=== PATIENT | female | born 1975 | race Two or more races ===

== ENCOUNTER 2024-10-19 07:55 | Inpatient (IN) | payer OTHER ==
[~2024-10-19] VITALS: Ht 160 cm; Wt 94.1 kg
[2024-10-19 08:24] LABS: PLATELET COUNT (AUTO) 282 K/uL (179-408); RED BLOOD CELL COUNT(AUTO) 3.04 MIL/uL (3.63-4.92); RED CELL DISTRIBUTION WIDTH 13.5 % (12.3-17.7); WHITE BLOOD COUNT (AUTO) 8.7 K/uL (3.8-11.8)
[2024-10-19] MEDS ORDERED: HYDROMORPHONE 1 MG/1 ML DISP.SYRIN ONE ×2 (08:29→11:53)
[2024-10-19] MEDS ORDERED: ONDANSETRON 4 MG/2 ML VIAL ONE (08:29)
[2024-10-19] MEDS: ONDANSETRON 4 MG/2 ML VIAL IV ONE (08:37)
[2024-10-19] MEDS: HYDROMORPHONE 1 MG/1 ML DISP.SYRIN IV ONE ×2 (08:37→12:00)
[2024-10-19 08:40] LABS: ASPARTATE AMINOTRANSFERASE 5 U/L (15-37); CREATININE 6.1 mg/dL (0.6-1.3); SODIUM SERUM 134 mmol/L (136-145); TOTAL PROTEIN, SERUM 7.8 g/dL (6.4-8.2); UREA NITROGEN, BLOOD 76 mg/dL (7-18)
[2024-10-19 09:20] LABS: IRON, SERUM 30 ug/dL (50-175)
[2024-10-19] MEDS ORDERED: FERR-56 PO (10:02)
[2024-10-19] MEDS ORDERED: ROSU10TA2 PO (10:02)
[2024-10-19] MEDS ORDERED: CARV3.12 PO (10:02)
[2024-10-19] MEDS ORDERED: BUME1TAB8 PO (10:02)
[2024-10-19] MEDS ORDERED: GABA600T PO (10:02)
[2024-10-19] MEDS ORDERED: INSULIN SQ (10:02)
[2024-10-19 10:52] LABS: *BILIRUBIN,URIN NEGATIVE (NEGATIVE); *BLOOD, URINE 3+ (NEGATIVE); *CLARITY,URINE CLEAR (CLEAR); *COLOR,URINE YELLOW (YELLOW); *KETONES,URINE NEGATIVE (NEGATIVE); *UROBILINOGEN,URINE 0.2 E.U./dl (NORMAL); LEUKOCYTE ESTERASE ,URINE NEGATIVE (NEGATIVE); NITRITE, URINE NEGATIVE (NEGATIVE)
[2024-10-19] MEDS ORDERED: CLONIDINE HCL 0.1 MG TABLET ONE (11:04)
[2024-10-19] MEDS: CLONIDINE HCL 0.1 MG TABLET PO ONE (11:08)
[2024-10-19 11:28] LABS: *PROTEIN,URINE 3+ (NEGATIVE); UGLUCOSE 2+ (NEGATIVE)
[2024-10-19 11:36] LABS: SQUAMOUS EPITHELIAL CELL,UR FEW /HPF (NONE SEEN); YEAST,URINE BUDDING YEAST /HPF (NONE SEEN)
[2024-10-19] MEDS ORDERED: CYANOCOBALAMIN 1000 MCG/ML VIAL ONE (11:52)
[2024-10-19] MEDS: CYANOCOBALAMIN 1000 MCG/ML VIAL IM ONE (12:00)
[2024-10-19] MEDS ORDERED: DEXTROSE 50% 50 ML DISP.SYRIN IV PRN (13:00)
[2024-10-19 13:36] LABS: *URINE HCG, QUAL NEGATIVE (NEGATIVE)
[2024-10-19] MEDS: ONDANSETRON 4 MG/2 ML VIAL IV PRN (14:29)
[2024-10-19 16:09] VITALS: BP 137/71; TEMP 97.7; O2SAT 99
[2024-10-19] MEDS: BLOOD SUGAR DIAGNOSTIC 1 EACH STRIP VI SCH (16:36)
[2024-10-19] MEDS: INSULIN REGULAR, HUMAN 1000 UNIT/10 ML VIAL SQ PRN (16:38)
[2024-10-19 19:00] VITALS: BP 141/74; TEMP 97.7; O2SAT 98
[2024-10-19] MEDS: HYDROCODONE/APAP 5-325MG TABLET PO PRN (19:23)
[2024-10-19] MEDS ORDERED: BUMETANIDE 1 MG TABLET PO SCH (20:00)
[2024-10-19] MEDS: INSULIN REGULAR, HUMAN 300 UNITS/3 ML VIAL SQ PRN (20:43)
[2024-10-19] MEDS: CARVEDILOL 3.125 MG TABLET PO SCH (20:48)
[2024-10-19] MEDS: BUMETANIDE 1 MG TABLET PO SCH (20:48)
[2024-10-20 06:00] VITALS: BP 113/58; TEMP 98.3; O2SAT 95
[2024-10-20] MEDS: PANTOPRAZOLE SODIUM 40 MG TABLET.DR PO SCH (06:04)
[2024-10-20 07:01] LABS: PLATELET COUNT (AUTO) 266 K/uL (179-408); RED BLOOD CELL COUNT(AUTO) 2.67 MIL/uL (3.63-4.92); RED CELL DISTRIBUTION WIDTH 13.5 % (12.3-17.7); WHITE BLOOD COUNT (AUTO) 7.8 K/uL (3.8-11.8)
[2024-10-20 07:56] LABS: CREATININE 6.8 mg/dL (0.6-1.3); SODIUM SERUM 136 mmol/L (136-145); TOTAL PROTEIN, SERUM 6.5 g/dL (6.4-8.2)
[2024-10-20 08:39] LABS: ASPARTATE AMINOTRANSFERASE < 5 U/L (15-37); UREA NITROGEN, BLOOD 83 mg/dL (7-18)
[2024-10-20 08:43] LABS: ERYTHROCYTE SEDIMENTATION RATE 100 MM/HR (0-20)
[2024-10-20 08:50] LABS: CREATINE KINASE, TOTAL 93 U/L (26-192)
[2024-10-20] MEDS ORDERED: BUMETANIDE 1 MG TABLET PO SCH (09:00)
[2024-10-20] MEDS ORDERED: INSU100V7 SQ (10:26)
[2024-10-20] MEDS ORDERED: CHOL500062 PO (10:27)
[2024-10-20] MEDS ORDERED: METO5TAB7 PO (10:28)
[2024-10-20] MEDS: SODIUM ZIRCONIUM CYCLOSILICATE 10 GM POWD.PACK PO ONE ×2 (13:08→21:05)
[2024-10-20] MEDS: SOD FERRIC GLUC COMPLX/SUCROSE 125 MG in IV NORMAL SALINE 100 ML IV SCH (15:44)
[2024-10-20 16:31] LABS: CREATININE 6.8 mg/dL (0.6-1.3); SODIUM SERUM 138.0 mmol/L (136-145); UREA NITROGEN, BLOOD 85.0 mg/dL (7-18)
[2024-10-20 17:00] VITALS: BP 159/85; TEMP 98.3; O2SAT 99
[2024-10-20] MEDS: SEVELAMER CARBONATE 800 MG TABLET PO SCH (17:28)
[2024-10-20 20:00] VITALS: BP 150/78; TEMP 98.3; O2SAT 96
[2024-10-20] MEDS: ATORVASTATIN 20 MG TABLET PO SCH (21:05)
[2024-10-21 06:00] VITALS: BP 138/76; TEMP 98.2; O2SAT 97
[2024-10-21 07:47] LABS: PLATELET COUNT (AUTO) 274 K/uL (179-408); RED BLOOD CELL COUNT(AUTO) 2.72 MIL/uL (3.63-4.92); RED CELL DISTRIBUTION WIDTH 13.6 % (12.3-17.7); WHITE BLOOD COUNT (AUTO) 7.1 K/uL (3.8-11.8)
[2024-10-21 07:57] VITALS: BP 168/86; TEMP 97.7; O2SAT 96
[2024-10-21 08:14] LABS: CREATININE 6.7 mg/dL (0.6-1.3); SODIUM SERUM 138 mmol/L (136-145); TOTAL PROTEIN, SERUM 6.8 g/dL (6.4-8.2); UREA NITROGEN, BLOOD 79 mg/dL (7-18)
[2024-10-21 08:15] LABS: ASPARTATE AMINOTRANSFERASE < 5 U/L (15-37)
[2024-10-21 14:11] LABS: COMPLEMENT, C3 SERUM 103 mg/dL (82-167); COMPLEMENT, C4 SERUM 18 mg/dL (12-38)
[2024-10-21] MEDS ORDERED: LIDOCAINE HCL 1% 20 ML VIAL IJ PRN (14:30)
[2024-10-21 15:00] VITALS: BP 141/61; TEMP 98.1; O2SAT 96
[2024-10-21 20:18] VITALS: BP 127/79; TEMP 98.5; O2SAT 98
[2024-10-21] MEDS: DOCUSATE SODIUM 100 MG CAPSULE PO SCH (21:23)
[2024-10-21] MEDS: diphenhydrAMINE 25 MG CAP PO ONE (23:53)
[2024-10-22 06:54] VITALS: BP 119/74; TEMP 98; O2SAT 97
[2024-10-22 07:06] LABS: PTH, INTACT 108 pg/mL (15-65)
[2024-10-22 08:07] LABS: PLATELET COUNT (AUTO) 252 K/uL (179-408); RED BLOOD CELL COUNT(AUTO) 2.75 MIL/uL (3.63-4.92); RED CELL DISTRIBUTION WIDTH 13.7 % (12.3-17.7); WHITE BLOOD COUNT (AUTO) 6.9 K/uL (3.8-11.8)
[2024-10-22 08:20] LABS: ASPARTATE AMINOTRANSFERASE < 5 U/L (15-37); CREATININE 4.5 mg/dL (0.6-1.3); SODIUM SERUM 139 mmol/L (136-145); TOTAL PROTEIN, SERUM 6.8 g/dL (6.4-8.2); UREA NITROGEN, BLOOD 47 mg/dL (7-18)
[2024-10-22 15:45] VITALS: BP 168/88; TEMP 98.3; O2SAT 98
[2024-10-22 19:11] LABS: HEPATITIS B SURFACE AB, QUAL Non Reactive (.); HEPATITIS B SURFACE AG Negative (Negative); HEPATITIS C VIRUS ANTIBODY Non Reactive (Non Reactive)
[2024-10-22 20:00] VITALS: BP 187/79; TEMP 98.7; O2SAT 96
[2024-10-22] MEDS ORDERED: MORPHINE SULFATE 4 MG/1 ML DISP.SYRIN IV PRN (20:00)
[2024-10-22 20:19] LABS: PLATELET COUNT (AUTO) 303 K/uL (179-408); RED BLOOD CELL COUNT(AUTO) 3.13 MIL/uL (3.63-4.92); RED CELL DISTRIBUTION WIDTH 13.4 % (12.3-17.7); WHITE BLOOD COUNT (AUTO) 8.1 K/uL (3.8-11.8)
[2024-10-22 20:30] LABS: CREATININE 5.0 mg/dL (0.6-1.3); SODIUM SERUM 140.0 mmol/L (136-145); UREA NITROGEN, BLOOD 48.0 mg/dL (7-18)
[2024-10-22] MEDS ORDERED: IOHEXOL 350 100 ML INFUS..BTL ONE (21:11)
[2024-10-22] MEDS: MAGNESIUM HYDROXIDE 30 ML LIQUID UDC PO PRN (23:48)
[2024-10-23 06:00] VITALS: BP 162/83; TEMP 98.8; O2SAT 99
[2024-10-23 08:00] LABS: PLATELET COUNT (AUTO) 307 K/uL (179-408); RED BLOOD CELL COUNT(AUTO) 3.32 MIL/uL (3.63-4.92); RED CELL DISTRIBUTION WIDTH 13.3 % (12.3-17.7); WHITE BLOOD COUNT (AUTO) 8.3 K/uL (3.8-11.8)
[2024-10-23 08:15] LABS: CREATININE 4.0 mg/dL (0.6-1.3); SODIUM SERUM 140.0 mmol/L (136-145); UREA NITROGEN, BLOOD 29.0 mg/dL (7-18)
[2024-10-23 08:30] VITALS: BP 151/79; TEMP 98.3; O2SAT 98
[2024-10-23 13:07] LABS: *ANTI-SCLERODERMA-70 AB <0.2 AI (0.0-0.9); *RNP ANTIBODIES 0.3 AI (0.0-0.9); *SJOGREN'S ANTI-SS-A <0.2 AI (0.0-0.9); *SJOGREN'S ANTI-SS-B <0.2 AI (0.0-0.9); *SMITH ANTIBODIES <0.2 AI (0.0-0.9); ANTI-DNA(DS) AB, QN 3 IU/mL (0-9); ANTI-NUCLEAR AB DIRECT Negative (Negative)
[2024-10-23 18:35] VITALS: BP 163/83; TEMP 98.9; O2SAT 99
[2024-10-24 05:08] LABS: HEPATITIS A AB, TOTAL Negative (Negative); HEPATITIS B CORE AB, TOTAL Negative (Negative); HEPATITIS B SURFACE AG Negative (Negative); HEPATITIS C VIRUS ANTIBODY Non Reactive (Non Reactive)
[2024-10-24 06:06] VITALS: BP 155/79; TEMP 97.5; O2SAT 98
[2024-10-24] MEDS: SIMETHICONE 80 MG TAB.CHEW PO SCH (06:46)
[2024-10-24 06:51] LABS: PLATELET COUNT (AUTO) 295 K/uL (179-408); RED BLOOD CELL COUNT(AUTO) 3.17 MIL/uL (3.63-4.92); RED CELL DISTRIBUTION WIDTH 13.4 % (12.3-17.7); WHITE BLOOD COUNT (AUTO) 8.3 K/uL (3.8-11.8)
[2024-10-24 07:17] LABS: CREATININE 6.0 mg/dL (0.6-1.3); SODIUM SERUM 137.0 mmol/L (136-145); UREA NITROGEN, BLOOD 38.0 mg/dL (7-18)
[2024-10-24] MEDS: ACETAMINOPHEN 325 MG TABLET PO PRN (07:53)
[2024-10-24 08:00] VITALS: BP 164/108; TEMP 97.6; O2SAT 97
[2024-10-24] MEDS: PANTOPRAZOLE SODIUM 40 MG TABLET.DR PO SCH (08:14)
[2024-10-24] MEDS: DICYCLOMINE HCL 10 MG CAPSULE PO SCH (13:18)
[2024-10-24] MEDS: METOCLOPRAMIDE HCL 10 MG/2 ML VIAL IV SCH (13:18)
[2024-10-24 13:58] VITALS: BP 136/76; TEMP 98; O2SAT 98
[2024-10-24] MEDS ORDERED: PHENAZOPYRIDINE HCL 100 MG TABLET PO SCH ×2 (14:00)
[2024-10-24] MEDS: SUCRALFATE 1 G/10 ML LIQUID UDC PO SCH (16:35)
[2024-10-24] MEDS: ALPRAZOLAM 0.25 MG TABLET PO ONE (19:39)
[2024-10-24 20:00] VITALS: BP 153/78; TEMP 97.7; O2SAT 99
[2024-10-25] MEDS: TEMAZEPAM 7.5 MG CAPSULE PO PRN (01:07)
[2024-10-25 06:00] VITALS: BP 159/85; TEMP 98.5; O2SAT 98
[2024-10-25 07:32] LABS: PLATELET COUNT (AUTO) 273 K/uL (179-408); RED BLOOD CELL COUNT(AUTO) 3.27 MIL/uL (3.63-4.92); RED CELL DISTRIBUTION WIDTH 13.7 % (12.3-17.7); WHITE BLOOD COUNT (AUTO) 9.1 K/uL (3.8-11.8)
[2024-10-25 07:52] LABS: CREATININE 5.3 mg/dL (0.6-1.3); SODIUM SERUM 134.0 mmol/L (136-145); UREA NITROGEN, BLOOD 26.0 mg/dL (7-18)
[2024-10-25 07:59] VITALS: BP 159/77; TEMP 98.1; O2SAT 98
[2024-10-25] MEDS: POTASSIUM CHLORIDE 20 MEQ TAB.PRT.SR PO ONE (10:59)
[2024-10-25] MEDS: ALPRAZOLAM 0.25 MG TABLET PO PRN (12:41)
[2024-10-25 16:43] VITALS: BP 178/94; TEMP 98.3; O2SAT 100
[2024-10-25] MEDS: SUCRALFATE 1 G TABLET PO SCH (17:06)
[2024-10-25 21:05] VITALS: BP 187/95; TEMP 98.1; O2SAT 100
[2024-10-26 02:00] VITALS: BP 155/80
[2024-10-26 06:09] VITALS: BP 144/67; TEMP 98.2; O2SAT 99
[2024-10-26 06:51] LABS: PLATELET COUNT (AUTO) 263 K/uL (179-408); RED BLOOD CELL COUNT(AUTO) 3.18 MIL/uL (3.63-4.92); RED CELL DISTRIBUTION WIDTH 13.8 % (12.3-17.7); WHITE BLOOD COUNT (AUTO) 10.3 K/uL (3.8-11.8)
[2024-10-26 07:03] LABS: CREATININE 6.7 mg/dL (0.6-1.3); SODIUM SERUM 136.0 mmol/L (136-145); UREA NITROGEN, BLOOD 35.0 mg/dL (7-18)
[2024-10-26] MEDS: MORPHINE SULFATE 4 MG/1 ML DISP.SYRIN IV PRN (07:56)
[2024-10-26] MEDS ORDERED: FENTANYL CITRATE 100 MCG/2 ML AMPUL IV PRN (10:00)
[2024-10-26] MEDS ORDERED: MIDAZOLAM HCL 2 MG/2 ML VIAL IV PRN (10:15)
[2024-10-26] MEDS ORDERED: NALOXONE HCL 0.4 MG/ML AMPUL IV PRN (10:15)
[2024-10-26] MEDS ORDERED: FLUMAZENIL 0.5 MG/5 ML VIAL IVP PRN ×2 (10:15)
[2024-10-26] MEDS: HYDROXYZINE PAMOATE 25 MG CAPSULE PO PRN (10:46)
[2024-10-26 11:58] VITALS: BP 141/78; TEMP 97.9; O2SAT 99
[2024-10-26] MEDS ORDERED: HEPARIN SODIUM,PORCINE 1,000 UNITS/ML VIAL ONE (12:07)
[2024-10-26] MEDS ORDERED: HEPARIN/NS 500 ML ONE (12:07)
[2024-10-26] MEDS ORDERED: LIDOCAINE HCL 1% 20 ML VIAL ONE (12:07)
[2024-10-26] MEDS ORDERED: IOHEXOL-240 MG , 50 ML VIAL IV ONE (12:08)
[2024-10-26] MEDS ORDERED: LIDOCAINE-MPF 2% 5 ML VIAL ONE (14:00)
[2024-10-26] MEDS ORDERED: PROPOFOL 200 MG/20 ML BOTTLE ONE (14:00)
[2024-10-26] MEDS ORDERED: MIDAZOLAM HCL 2 MG/2 ML VIAL ONE (14:02)
[2024-10-26 15:24] VITALS: BP 150/75
[2024-10-26 15:46] VITALS: BP 149/82; TEMP 98.8; O2SAT 98
[2024-10-26 19:40] VITALS: BP 99/58; TEMP 98.3; O2SAT 98
[2024-10-26] MEDS: CEFAZOLIN 1 G in IV DEXTROSE 5% 50 ML IV SCH (22:09)
[2024-10-27 05:59] VITALS: BP 109/62; TEMP 98.5; O2SAT 97
[2024-10-27 06:56] LABS: PLATELET COUNT (AUTO) 214 K/uL (179-408); RED BLOOD CELL COUNT(AUTO) 2.94 MIL/uL (3.63-4.92); RED CELL DISTRIBUTION WIDTH 13.7 % (12.3-17.7); WHITE BLOOD COUNT (AUTO) 8.1 K/uL (3.8-11.8)
[2024-10-27 07:21] LABS: CREATININE 5.2 mg/dL (0.6-1.3); SODIUM SERUM 136.0 mmol/L (136-145); UREA NITROGEN, BLOOD 24.0 mg/dL (7-18)
[2024-10-27] MEDS: ALPRAZOLAM 0.25 MG TABLET PO PRN (08:07)
[2024-10-27] MEDS ORDERED: MORPHINE SULFATE 4 MG/1 ML DISP.SYRIN IV PRN (09:30)
[2024-10-27 12:24] VITALS: BP 134/74; TEMP 97.9; O2SAT 97
[2024-10-27] MEDS: MORPHINE SULFATE 2 MG/1 ML DISP.SYRIN IV PRN (13:53)
[2024-10-27] MEDS: MORPHINE SULFATE 2 MG/1 ML DISP.SYRIN IV ONE (14:28)
[2024-10-27 15:31] VITALS: BP 129/54; TEMP 98.1; O2SAT 98
[2024-10-27 19:48] VITALS: BP 150/63; TEMP 98.1; O2SAT 98
[2024-10-28 06:10] VITALS: BP 118/55; TEMP 98.4; O2SAT 96
[2024-10-28 07:11] LABS: CREATININE 6.8 mg/dL (0.6-1.3); SODIUM SERUM 136.0 mmol/L (136-145); UREA NITROGEN, BLOOD 32.0 mg/dL (7-18)
[2024-10-28 07:22] LABS: PLATELET COUNT (AUTO) 214 K/uL (179-408); RED BLOOD CELL COUNT(AUTO) 3.12 MIL/uL (3.63-4.92); RED CELL DISTRIBUTION WIDTH 13.6 % (12.3-17.7); WHITE BLOOD COUNT (AUTO) 8.3 K/uL (3.8-11.8)
[2024-10-28 11:38] VITALS: BP 109/55; TEMP 98; O2SAT 97
[2024-10-28 16:00] VITALS: BP 137/65; TEMP 98.5; O2SAT 98
[2024-10-28 19:49] VITALS: BP 158/83; TEMP 98.3; O2SAT 96
[2024-10-29 05:40] VITALS: BP 125/73; TEMP 98.6; O2SAT 97
[2024-10-29 07:03] LABS: PLATELET COUNT (AUTO) 212 K/uL (179-408); RED BLOOD CELL COUNT(AUTO) 3.13 MIL/uL (3.63-4.92); RED CELL DISTRIBUTION WIDTH 13.6 % (12.3-17.7); WHITE BLOOD COUNT (AUTO) 9.6 K/uL (3.8-11.8)
[2024-10-29 07:22] LABS: CREATININE 5.0 mg/dL (0.6-1.3); SODIUM SERUM 139.0 mmol/L (136-145); UREA NITROGEN, BLOOD 21.0 mg/dL (7-18)
[2024-10-29] MEDS ORDERED: SEVE800T8 PO (10:15)
[2024-10-29 11:37] VITALS: BP 139/66; TEMP 98.1; O2SAT 99
== END 2024-10-29 14:45 | disposition home or self-care (01) | DRG 463 ==
LOC: ER 07:55 → MEDSURG3 12:27 → MEDSURG1 10-20 09:17 → MEDSURG3 10-25 11:45
PROC: 02H633Z Insertion of Infusion Device into Right Atrium, Percutaneous Approach (ICD-10-PCS; principal; 2024-10-21)
PROC: 5A1D70Z Performance of Urinary Filtration, Intermittent, Less than 6 Hours Per Day (ICD-10-PCS; principal; 2024-10-21)
PROC: 0JH63XZ Insertion of Tunneled Vascular Access Device into Chest Subcutaneous Tissue and Fascia, Percutaneous Approach (ICD-10-PCS; 2024-10-26)
PROC: 0TB03ZX Excision of Right Kidney, Percutaneous Approach, Diagnostic (ICD-10-PCS; 2024-10-26)
PROC: B518ZZA Fluoroscopy of Superior Vena Cava, Guidance (ICD-10-PCS; 2024-10-26)
PROC: 02HV33Z Insertion of Infusion Device into Superior Vena Cava, Percutaneous Approach (ICD-10-PCS; 2024-10-26)
DX: N12 Tubulo-interstitial nephritis, not specified as acute or chronic (principal); N17.0 Acute kidney failure with tubular necrosis; I13.2 Hypertensive heart and chronic kidney disease with heart failure and with stage 5 chronic kidney disease, or end stage renal disease; I50.33 Acute on chronic diastolic (congestive) heart failure; E44.0 Moderate protein-calorie malnutrition; D63.1 Anemia in chronic kidney disease; B96.20 Unspecified Escherichia coli [E. coli] as the cause of diseases classified elsewhere; E11.22 Type 2 diabetes mellitus with diabetic chronic kidney disease; E87.1 Hypo-osmolality and hyponatremia; N18.5 Chronic kidney disease, stage 5; D50.9 Iron deficiency anemia, unspecified; Z90.49 Acquired absence of other specified parts of digestive tract; E87.5 Hyperkalemia; E87.6 Hypokalemia; E78.5 Hyperlipidemia, unspecified; F43.22 Adjustment disorder with anxiety; H54.3 Unqualified visual loss, both eyes; Z98.51 Tubal ligation status; E11.65 Type 2 diabetes mellitus with hyperglycemia; Z79.4 Long term (current) use of insulin; N25.0 Renal osteodystrophy; E66.9 Obesity, unspecified; Z71.3 Dietary counseling and surveillance; Z68.36 Body mass index [BMI] 36.0-36.9, adult; Z79.899 Other long term (current) drug therapy
CPT/HCPCS: 36415; 70030-TC; 71045; 76770; 76856; 83550; 83605; 83735; 83970; 84100; 84155; 84165; 84484; 84703; 85025; 85610; 85651; 85730; 86038; 86160; 86704; 86706; 86708; 86803; 86850; 86900; 86901; 87077; 87086; 87340; 87350; A4663; G0378; J0360; J0690; J0696; J1171; J1644; J1815; J2250; J2270; J2405; J2765; J2916; J3010; J3420; J3490; J7040; Q0163; Q9966; Q9967